=== PATIENT | female | born 1980 | race Two or more races ===

== ENCOUNTER 2018-01-16 07:52 | Day surgery (SDC) | payer BC ==
[~2018-01-16] VITALS: Ht 162.6 cm; Wt 75.4 kg
[2018-01-16 08:09] VITALS: BP 110/73
[2018-01-16 08:23] VITALS: BP 110/73
[2018-01-16 09:29] LABS: BASOPHILS # (AUTO) 0.02 x10^3/uL (0-0.1); BASOPHILS % (AUTO) 0 % (0-1); EOSINOPHILS # (AUTO) 0.12 x10^3/uL (0-0.4); EOSINOPHILS % (AUTO) 2 % (1-7); LYMPHOCYTES # (AUTO) 1.38 x10^3/uL (1-3.4); LYMPHOCYTES % (AUTO) 22 % (22-44); MD NO; MEAN CORPUSCULAR HEMOGLOBIN 30.9 pg (27.0-34.8); MEAN CORPUSCULAR HGB CONC 33.6 g/dL (32.4-35.8); MEAN CORPUSCULAR VOLUME 91.8 fL (80-100); MEAN PLATELET VOLUME 7.9 fL (7.4-10.4); MONOCYTES % (AUTO) 7 % (2-9); NEUTROPHILS # (AUTO) 4.22 x10^3/uL (1.8-6.8); NEUTROPHILS % (AUTO) 69 % (42-75); PLATELET COUNT 273 x10^3/uL (130-400); RED BLOOD COUNT 4.51 x10^6/uL (3.82-5.3); RED CELL DISTRIBUTION WIDTH 13.4 % (9.6-15.2)
[2018-01-16] MEDS ORDERED: MISOPROSTOL 200 MCG TABLET ONE (10:13)
[2018-01-16] MEDS ORDERED: METHYLERGONOVINE 0.2 MG/ML IM ONE (10:13)
[2018-01-16] MEDS ORDERED: OXYTOCIN 10 UNITS/ML, 1ML ONE (10:13)
[2018-01-16] MEDS ORDERED: FENTANYL PF 100 MCG/2ML ONE (10:31)
[2018-01-16] MEDS ORDERED: MIDAZOLAM 1 MG/ML, 2ML ONE (10:31)
[2018-01-16] MEDS ORDERED: CEFAZOLIN 1,000 MG ONE (10:33)
[2018-01-16] MEDS ORDERED: DEXAMETHASONE 4 MG/ML, 1ML ONE ×2 (10:33)
[2018-01-16] MEDS ORDERED: PROPOFOL 10 MG/ML, 20ML ONE (10:33)
[2018-01-16] MEDS ORDERED: KETOROLAC 30 MG/1 ML ONE (10:55)
[2018-01-16] MEDS ORDERED: ONDANSETRON 2MG/ML, 2ML ONE (10:55)
[2018-01-16] MEDS ORDERED: METOPROLOL 1 MG/ML, 5ML IV PRN (11:00)
[2018-01-16] MEDS ORDERED: ONDANSETRON ODT 8 MG PO PRN (11:00)
[2018-01-16] MEDS ORDERED: ACETAMINOPHEN 325 MG TABLET PO PRN (11:00)
[2018-01-16] MEDS ORDERED: EPHEDRINE 50 MG/ML, 1ML IVPush PRN (11:00)
[2018-01-16] MEDS ORDERED: ALBUTEROL SULFATE 2.5 MG/3 ML NPPB PRN (11:00)
[2018-01-16] MEDS ORDERED: FENTANYL PF 100 MCG/2ML IV PRN (11:00)
[2018-01-16] MEDS ORDERED: PROMETHAZINE 25 MG/ML, 1ML IV PRN (11:00)
[2018-01-16] MEDS ORDERED: hydrALAzine 20 MG/ML, 1ML IV PRN (11:00)
[2018-01-16] MEDS ORDERED: OXYcodone 5 MG/5 ML ORAL.SOL UDC PO PRN (11:00)
[2018-01-16] MEDS ORDERED: LABETALOL 5MG/ML, 20ML IV PRN (11:00)
[2018-01-16] MEDS ORDERED: MEPERIDINE/PF 25MG/0.5ML IVPush PRN (11:00)
[2018-01-16] MEDS ORDERED: HYDROcodone/APAP 7.5-325MG/15ML UDC PO PRN (11:30)
[2018-01-16] MEDS ORDERED: HYDROcodone/APAP 7.5-325MG/15ML UDC ONE (11:31)
[2018-01-16] MEDS ORDERED: morphine SULFATE 10 MG/ML, 1ML IV PRN (12:30)
[2018-01-16] MEDS ORDERED: ONDANSETRON 2MG/ML, 2ML IV PRN (12:30)
[2018-01-16] MEDS ORDERED: OXYcodone/APAP 5/325MG TABLET PO PRN (12:30)
== END 2018-01-16 14:45 | disposition home or self-care (01) ==
LOC: OR 07:52 → 4NOR 07:58 → OR 14:45
PROVIDERS: ATTEND Obstetrics & Gynecology Gynecology
DX: O02.1 Missed abortion (principal); Z88.1 Allergy status to other antibiotic agents
CPT/HCPCS: 36415; 59820; 85025; 88305; J0690; J1100; J1885; J2250; J2405; J2704; J3010; J2210; J2590